=== PATIENT | female | born 1980 | race Asian ===

== ENCOUNTER 2018-10-07 03:10 | Inpatient (IN) | payer OTHER ==
[~2018-10-07] VITALS: Ht 157.5 cm; Wt 74.9 kg
[2018-10-07 03:29] VITALS: BP 133/85; PULSE 74; Ht 157.5 cm; Wt 74.9 kg
[2018-10-07] MEDS ORDERED: CITRACAL PO (03:36)
[2018-10-07] MEDS ORDERED: FER325 PO (03:36)
[2018-10-07] MEDS ORDERED: PREN-93 PO (03:36)
[2018-10-07] MEDS ORDERED: LACTATED RINGER'S 1,000 ML IV PRN (04:50)
[2018-10-07] MEDS ORDERED: LIDOCAINE 1% (MPF) 30 ML INJ INJ PRN (05:00)
[2018-10-07] MEDS ORDERED: AMPICILLIN 2 GM/NS (PMX) 100 ML IV ONE (05:00)
[2018-10-07] MEDS ORDERED: MISOPROSTOL 200 MCG TAB PR PRN ×2 (05:00→14:30)
[2018-10-07] MEDS ORDERED: OXYTOCIN 30 UNITS/LR 500 ML IV PRN ×2 (05:00→14:30)
[2018-10-07] MEDS ORDERED: BUTORPHANOL 2 MG INJ IV PRN (05:00)
[2018-10-07] MEDS ORDERED: CARBOPROST 250 MCG INJ IM PRN ×2 (05:00→14:30)
[2018-10-07] MEDS ORDERED: METHYLERGONOVINE 0.2 MG INJ IM PRN ×2 (05:00→14:30)
[2018-10-07] MEDS ORDERED: IBUPROFEN 600 MG TAB PO PRN (05:00)
[2018-10-07] MEDS ORDERED: OXYTOCIN 30 UNITS/LR 500 ML IV SCH ×2 (05:00)
[2018-10-07] MEDS ORDERED: BUTORPHANOL 1 MG INJ IV PRN (05:00)
[2018-10-07] MEDS: LACTATED RINGER'S 1,000 ML IV SCH ×3 (05:25→10:37)
[2018-10-07] MEDS ORDERED: CEFAZOLIN 2 GM/50 ML (PMX) 50 ML IVPB SCH (05:30)
--- NOTE | 2018-10-07 05:54 | HP ---
Date/Time of Note Date/Time of Note DATE: 10/07/18 TIME: 05:48 OB - History Hx of Present Free Text/Dictation 10/07/2018 : 1 Para: 0 Spontaneous : 0 Care: Good Care Other Concerns: 38 years old with IUP at 38 weeks and 5 days, presented with complaint of contractions and LOF since 12 : 00 mid night with passing some blood clots., She was noited to have a heart decelerations down to 80s, lasted for 1 min and occasional late decelerations consistent with Cat 2 tracing that resolved after Hydration. She has progressed to 3-4 cm spontaneously and After hydration. Cat 1 with occasional variable deceleration course was complicated by elevated one hour PG. 3 hours GTT normal. Late transfer from [facility]. Had care in [facility], Past Family/Social History * Past Medical, Surgical, Family and Obstetric Histories reviewed from chart. OB Admission Exam Vital Signs Vital Signs Vital Signs Date Temp Pulse Resp B/P (MAP) Pulse Ox O2 O2 Flow FiO2 Time Delivery Rate 10/07/18 98.0 74 133/85 Room Air 03:29 (101) Physical Exam HEENT: WNL Abdomen: WNL Cervical Dilatation: 3cm Effacement: 75% Station: -2 Membranes: Ruptured Heart Rate: 130's Accelerations: Accelerations Present Decelerations: Variable Decelerations Varibility: Moderate Contractions on Admission: < 5 Minutes Apart Intensity: Moderate OB Assessment/Plan Other Assessment: s/p SROM, In labor now IUP at 38 weeks and 5 days Cat 2 tracing resolved after IV hydration.now Cat1 IUPC placed. will proceed with expectant management Elevated one hour PG, 3 hour GTT normal. Consider Amnioinfusion if recurrent variables occurs Anticipate Plan of care discussed with the patient GBS positive, receiving Ampicillin for GBS prophylaxis DUNCAN NELSON MD Oct 07, 2018 05:54
--- NOTE | 2018-10-07 06:26 | PREAC ---
Date/Time of Note Date/Time of Note DATE: 10/07/18 TIME: 06:25 Anesthesia Eval and Record Evaluation Time Pre-Procedure Interview DATE: 10/07/18 TIME: 06:25 Age 38 Sex female NPO: 8 hrs Preoperative diagnosis labor pain Planned procedure epidural Past Medical History Past Medical History: Includes Surgery & Anesthesia Issues No known issue Meds Anticoagulation: No Beta Breana within 24 hr: No Reason Beta Breana not given: Pt. not on B-Breana Reported Medications Calcium Citrate* (Citracal*) 950 Mg Tab, 950 MG PO DAILY, TAB 10/07/18 Ferrous Sulfate* (Ferrous Sulfate*) 325 Mg Tabec, 325 MG PO DAILY, TAB 10/07/18 Vit No.124/Iron/FA ( Vitamin Tablet) 1 Each Tablet, 1 EACH PO, TAB 10/07/18 Current Medications Lactated Ringer's 1,000 ml @ 125 mls/hr Q8H IV Last administered on 10/07/18at 06:08; Admin Dose 125 MLS/HR; Start 10/07/18 at 04:50 Ampicillin 50 ml @ 100 mls/hr Q4H IV ; Start 10/07/18 at 09:00 Lidocaine (Xylocaine 1% (Mpf)) 30 ml ONCE PRN INJ .EPISIOTOMY; Start 10/07/18 at 05:00 Oxytocin/Lactated Ringer's 500 ml @ 500 mls/hr ONCE POST IV ; Start 10/07/18 at 05:00 Oxytocin/Lactated Ringer's 500 ml @ 125 mls/hr POST IV ; Start 10/07/18 at 05:00 Ibuprofen (Motrin) 600 mg ONCE PRN PO .PAIN 1-5; Start 10/07/18 at 05:00 Lactated Ringer's 1,000 ml @ 2,000 mls/hr Q30M PRN IV .ANESTHESIA; Start 10/07/18 at 04:50 Oxytocin/Lactated Ringer's 500 ml @ 0 mls/hr ONCE PRN IV .VAGINAL BLEEDING; Start 10/07/18 at 05:00 Methylergonovine Maleate (Methergine) 0.2 mg ONCE PRN IM .VAGINAL BLEEDING; Start 10/07/18 at 05:00 Carboprost Tromethamine (Hemabate) 250 mcg ONCE PRN IM .VAGINAL BLEEDING; Start 10/07/18 at 05:00 Misoprostol (Cytotec) 1,000 mcg ONCE PRN NH .VAGINAL BLEEDING; Start 10/07/18 at 05:00 Cefazolin Sodium/ Dextrose 50 ml @ 100 mls/hr ONCE IVPB ; Start 10/07/18 at 05:30 Meds reviewed: Yes Allergies Coded Allergies: tramadol (Verified Allergy, Unknown, ITCHING, 10/07/18) Allergies Reviewed: Yes Labs/Studies Labs Reviewed: Reviewed by anesthesiologist Result Diagram: 10/07/18 0520 Laboratory Tests 10/07/18 05:20 test: Positive Studies: ECG (n/a), CXR (n/a) Pre-procedure Exam Last vitals Vital Signs Date Temp Pulse Resp B/P (MAP) Pulse Ox O2 O2 Flow FiO2 Time Delivery Rate 10/07/18 98.0 74 133/85 Room Air 03:29 (101) Airway: Adequate mouth opening Mallampati: Mallampati I Teeth: Normal Lung: Normal Heart: Normal ASA Physical Status ASA physical status: 2 Emergency: None Planned Anesthetic Neuraxial: Epidural Pre-operative Attestations Prior to commencing anesthesia and surgery, the patient was re-evaluated, there was verification of: *The patient's identity *The results of appropriate recent lab work and preoperative vital signs *The above evaluation not changing prior to induction *Anesthetic plan, risk benefits, alternative and complications discussed with patient/family; questions answered; patient/family understands, accepts and wishes to proceed. MADISON MASSEY MD Oct 07, 2018 06:26
[2018-10-07] MEDS ORDERED: FENTAnyl 2MCG/ML-ROPIV 0.2% 100 ML ONE (06:49)
--- NOTE | 2018-10-07 06:58 | TRIAGE ---
OB Triage Datetime Report Generated by CPN: 10/07/2018 06:58 Datetime: 10/07/2018 05:59 Vaginal Exam Dilatation (cms): 2.5 Effacement (%): 60 Station: -2 Exam By: GISSELLE Vaginal Bleeding: Small Cervix, Consistency: Soft Cervix, Position: Anterior Datetime: 10/07/2018 05:44 Assessment Type: Admission Assessment Vaginal Bleeding: None Maternal Assessment Level of Consciousness: Fully Conscious DTR's/Clonus: DTRs 2+; No Clonus Headache: Denies Blurred Vision: No Respiratory Effort: Unlabored; Regular Rhythm; Equal Expansion Breath Sounds, Left: Clear and Equal Breath Sounds, Right: Clear and Equal Nausea/Vomiting: Denies RUQ Epigastric Pain: Denies Lower Extremities Edema: None Degree: None Upper Extremities Edema: None Degree: None Facial Edema: None Fall Risk Assessment History of Falling: (0) No Secondary Diagnosis: (0) No Ambulatory Aid: (0) Bedrest/Nurse Assist IV Therapy: (20) Yes Gait: (0) Normal/Bedrest/Immobile Mental Status: (0) Oriented to Own Ability Fall Score: 20 Fall Risk Score Definition: No Risk: No action required Labor Evaluation Frequency: 2.5-4 Duration (sec)2399: 60-90 Quality: Mild Pattern: Normal: <= 5 Contractions in 10 Minutes Resting Tone Quail: Relaxed Heart Rate FHR Baseline Rate: 135 Variability: Moderate 6-25 bpm Accelerations: 15X15 Decelerations: None Category: Category I Pain Assessment Pain Scale: 8 Pain Presence: Intermittent Pain Type: Contraction Pain Location: Abdomen Pain Goal: 5 Datetime: 10/07/2018 05:20 Time of Arrival: 10/07/2018 04:46 EGA: 38.5 Arrived By: Transfer Arrived From: triage Datetime: 10/07/2018 05:03 Assessment Type: Admission Assessment Maternal Assessment Level of Consciousness: Fully Conscious DTR's/Clonus: DTRs 2+; No Clonus Headache: Denies Blurred Vision: No Respiratory Effort: Unlabored; Regular Rhythm; Equal Expansion Breath Sounds, Left: Clear and Equal Breath Sounds, Right: Clear and Equal Nausea/Vomiting: Denies RUQ Epigastric Pain: Denies Lower Extremities Edema: Bilateral Lower Extremities Degree: 1+ Upper Extremities Edema: None Degree: None Facial Edema: None Temperature Route: Oral Fall Risk Assessment History of Falling: (0) No Secondary Diagnosis: (0) No Ambulatory Aid: (0) Bedrest/Nurse Assist IV Therapy: (0) No Gait: (0) Normal/Bedrest/Immobile Mental Status: (0) Oriented to Own Ability Fall Score: 0 Fall Risk Score Definition: No Risk: No action required Pain Assessment Pain Scale: 7 Pain Presence: Intermittent Pain Type: Contraction Pain Location: Abdomen; Back Pain Relief Measures: Comfort Measures Datetime: 10/07/2018 04:50 Labor Evaluation Frequency: 1.5-4.5 Monitor Mode: External Duration (sec)2399: 60-100 Quality: Moderate Pattern: Normal: <= 5 Contractions in 10 Minutes Resting Tone Quail: Relaxed Interventions: Side to Side; Oxygen Applied; Sterile Vaginal Exam; Provider Notified Heart Rate FHR Baseline Rate: 135 Monitor Mode: External US Variability: Moderate 6-25 bpm Accelerations: 15X15 Decelerations: Early; Late; Prolonged Category: Category II Comments: late decels noted, prolonged decel x1 lasting about 2.5mins down to nieves of 70bpm noted; MD notified. Pain Assessment Pain Scale: 7 Pain Presence: Intermittent Pain Type: Contraction Pain Location: Abdomen; Back Pain Relief Measures: Comfort Measures Datetime: 10/07/2018 04:46 Stage of : Labor Datetime: 10/07/2018 04:41 Vaginal Exam Dilatation (cms): 1.5 Effacement (%): 30 Station: -2 Exam By: MadhuSIMON RN Datetime: 10/07/2018 04:33 Monitor Mode: External US Comments: monitor loss of contact, occasionally tracing maternal HR (confirmed via pulse ox) Datetime: 10/07/2018 04:05 Labor Evaluation Frequency: 2-3 Monitor Mode: External Quality: Moderate Pattern: Normal: <= 5 Contractions in 10 Minutes Resting Tone Quail: Relaxed Interventions: Side to Side Heart Rate FHR Baseline Rate: 130 Monitor Mode: External US Variability: Moderate 6-25 bpm Decelerations: Late Category: Category II Datetime: 10/07/2018 03:55 Monitor Mode: External Datetime: 10/07/2018 03:50 Labor Evaluation Frequency: 1.5-4 Monitor Mode: External Duration (sec)2399: 60-90 Quality: Moderate Pattern: Normal: <= 5 Contractions in 10 Minutes Resting Tone Quail: Relaxed Interventions: Side to Side; Blood Pressure; Provider Notified Heart Rate FHR Baseline Rate: 135 Monitor Mode: External US Variability: Moderate 6-25 bpm Accelerations: 15X15 Decelerations: Late; Variable Category: Category II Datetime: 10/07/2018 03:42 Vaginal Exam Dilatation (cms): 1.5 Effacement (%): 30 Station: -2 Exam By: SLY GE Membrane Status: Intact Vaginal Bleeding: Normal Show Cervix, Consistency: Moderate Cervix, Position: Midposition Presentation 'A': Cephalic Datetime: 10/07/2018 03:36 Time of Arrival: 10/07/2018 03:11 EGA: 38.5 Arrived By: Wheelchair Arrived From: Home Chief Complaint: UC'S SINCE 1999 (10/06) WITH LOSS OF MUCUS PLUG Movement: Present Contractions: Regular Time Contractions Began: 10/06/2018 20:00 Contractions: 2-5MINS Rupture of Membranes: Unsure Vaginal Bleeding: Normal Show Vaginal Discharge: Present Recent Sexual Intercouse: Denies Abdominal Trauma: Not Applicable Patient Complaints: Contractions Time Provider Notified: 10/07/2018 03:46 Provider Notified: Initial Plan: VS, EFM, SVE Datetime: 10/07/2018 03:29 Maternal Assessment Level of Consciousness: Fully Conscious DTR's/Clonus: DTRs 2+; No Clonus Headache: Denies Blurred Vision: No Respiratory Effort: Unlabored; Regular Rhythm; Equal Expansion Breath Sounds, Left: Clear and Equal Breath Sounds, Right: Clear and Equal Nausea/Vomiting: Denies RUQ Epigastric Pain: Denies Lower Extremities Edema: Bilateral Lower Extremities Degree: 1+ Upper Extremities Edema: None Degree: None Facial Edema: None Temperature Route: Oral Fall Risk Assessment History of Falling: (0) No Secondary Diagnosis: (0) No Ambulatory Aid: (0) Bedrest/Nurse Assist IV Therapy: (0) No Gait: (0) Normal/Bedrest/Immobile Mental Status: (0) Oriented to Own Ability Fall Score: 0 Fall Risk Score Definition: No Risk: No action required Pain Assessment Pain Scale: 6 Pain Presence: Intermittent Pain Type: Contraction Pain Location: Abdomen; Back Pain Relief Measures: Comfort Measures Datetime: 10/07/2018 03:28 Monitor Mode: External Monitor Mode: External US Comments: MONITORS APPLIED, FHT AUDIBLE AROUND 135-140BPM Datetime: 10/07/2018 03:26 Stage of : OB Triage
[2018-10-07] MEDS: SOD CHLORIDE 0.9% 1,000 ML IV PRN ×2 (08:47→10:37)
[2018-10-07] MEDS ORDERED: AMPICILLIN 1 GM/NS (PMX) 50 ML IV SCH (09:00)
--- NOTE | 2018-10-07 09:27 | PAC ---
Date/Time of Note Date/Time of Note DATE: 10/07/18 TIME: 09:27 Post-Anesthesia Notes Post-Anesthesia Note Last documented vital signs Vital Signs Date Temp Pulse Resp B/P (MAP) Pulse Ox O2 O2 Flow FiO2 Time Delivery Rate 10/07/18 98.0 74 133/85 99 Room Air 08:29 (101) Activity: WNL Respiratory function: WNL Cardiovascular function: WNL Mental status: Baseline Pain reasonably controlled: Yes Hydration appropriate: Yes Nausea/Vomiting absent: No MADISON MASSEY MD Oct 07, 2018 09:27
[2018-10-07] MEDS ORDERED: NALOXONE (0.4 MG/ML) INJ IV PRN (09:30)
[2018-10-07] MEDS ORDERED: ROPIVACAINE 0.2% 100ML BAG EPI SCH (09:30)
[2018-10-07] MEDS ORDERED: FENTAnyl 2MCG/ML-ROPIV 0.2% 100 ML BAG EPI SCH (09:30)
[2018-10-07] MEDS: OXYTOCIN 30 UNITS/LR 500 ML IV SCH ×3 (14:10→18:31)
[2018-10-07] MEDS ORDERED: ONDANSETRON 4 MG INJ IV PRN (14:30)
[2018-10-07] MEDS ORDERED: METHYLERGONOVINE 0.2 MG TAB PO PRN (14:30)
[2018-10-07] MEDS ORDERED: ACETAMINOPHEN 325 MG TAB PO PRN (14:30)
[2018-10-07] MEDS ORDERED: ZOLPIDEM 5 MG TAB PO PRN (14:30)
[2018-10-07] MEDS ORDERED: LANOLIN HPA 1 PKT TOP PRN (14:30)
[2018-10-07] MEDS ORDERED: NACL 0.9% 3 ML SYG IV SCH (14:30)
[2018-10-07] MEDS ORDERED: WITCH HAZEL/GLYCERIN PAD PR PRN (14:30)
[2018-10-07] MEDS ORDERED: DIPHENHYDRAMINE 25 MG CAP PO PRN (14:30)
[2018-10-07 16:30] VITALS: BP 134/79; PULSE 95; RESP 18
[2018-10-07 17:00] VITALS: BP 126/82; PULSE 100
[2018-10-07 18:00] VITALS: BP 121/82; PULSE 98; RESP 20
[2018-10-07] MEDS: IBUPROFEN 600 MG TAB PO SCH ×2 (18:25→23:51)
[2018-10-07 20:00] VITALS: BP 116/65; PULSE 99; RESP 18
[2018-10-07] MEDS: SENNA/DOCUSATE NA (8.6MG/50MG) TAB PO SCH (21:37)
[2018-10-08] MEDS: IBUPROFEN 600 MG TAB PO SCH ×4 (05:55→23:29)
[2018-10-08 08:00] VITALS: BP 103/76; PULSE 76; RESP 18
[2018-10-08 08:45] VITALS: BP 103/76; PULSE 76; RESP 18
[2018-10-08] MEDS: SENNA/DOCUSATE NA (8.6MG/50MG) TAB PO SCH ×2 (09:29→21:16)
[2018-10-08] MEDS: FERROUS SULFATE (EC) 325 MG TAB PO SCH (09:29)
[2018-10-08 15:40] VITALS: BP 122/63; PULSE 77; RESP 18
[2018-10-08 19:30] VITALS: BP 112/70; PULSE 76; RESP 18
[2018-10-09 03:45] VITALS: BP 108/61; PULSE 64; RESP 18
[2018-10-09] MEDS: IBUPROFEN 600 MG TAB PO SCH ×2 (05:26→11:27)
[2018-10-09 08:00] VITALS: BP 115/75; PULSE 65; RESP 18
[2018-10-09] MEDS: FERROUS SULFATE (EC) 325 MG TAB PO SCH (09:25)
[2018-10-09] MEDS: SENNA/DOCUSATE NA (8.6MG/50MG) TAB PO SCH (09:25)
--- NOTE | 2018-10-09 13:53 | PN ---
Date/Time of Note Date/Time of Note DATE: 10/09/18 TIME: 13:51 OB Subjective Subjective Subjective Late entry note. Patient seen on 10/08/2018 PPD# 1 Patient is doing well. She denies nausea, vomiting, shortness of breath, chest pain, headache. She has been ambulating without difficulty, tolerating regular diet. Pain is well controlled on current medications OB Objective Objective Objective Vital Signs Date Temp Pulse Resp B/P (MAP) Pulse Ox O2 O2 Flow FiO2 Time Delivery Rate 10/09/18 98.1 65 18 115/75 Room Air 08:00 (88) General: AAO X 3, comfortable, NAD, appropriate mood and affect. ABD: +BS. Soft, non-tender. Uterus 2 cm below umbilicus Flank: No CVA tenderness (B/L) LE: Mild edema. No clubbing, cyanosis, thigh or calf tenderness (B/L). Homans 'sign is negative OB Assessment/Plan Other plan: 38-year-old s/p normal vaginal delivery at 38 weeks and 5 days. PPD#1 - AF, VSS - Baby is doing well, at bed side. She is bonding well - Contraception methods with R/B/A/FR discussed - Continue care - Discharge home tomorrow - Rx and instruction given - Follow up in 2 and 6 weeks at clinic HARRISON CHOI Oct 09, 2018 13:53
--- NOTE | 2018-10-09 13:54 | DS ---
Date/Time of Note Date/Time of Note DATE: 10/09/18 TIME: 13:53 Obstetrical Discharge Record Final Diagnosis Final Diagnosis: Term delivered Other Final Diagnosis 38-year-old s/p normal vaginal delivery at 38 weeks and 5 days. PPD#2. Her course was unremarkable. She is ambulating and tolerating regular diet. She is voiding without difficulty. Pain is controlled on current medication - AF, VSS - Baby is doing well, at bed side. She is bonding well - Contraception methods with R/B/A/FR discussed - Continue care - Discharge home - Rx and instruction given - Follow up in 2 and 6 weeks at clinic Vaginal Delivery Obstetrical Delivery: Spontaneous Condition on Discharge Physical Assessment Voiding: Yes Bowel Movement: Yes Breast: Soft, non-tender Fundus: Firm Calf Tenderness: No Patient Condition: Stable HARRISON CHOI Oct 09, 2018 13:54
--- NOTE | 2018-10-21 11:27 | DELSUM ---
Delivery Summary A-C Datetime Report Generated by CPN: 10/21/2018 11:20 DELIVERY PERSONNEL Quality Review Trainer: Nadine Uriarte MATERNAL INFORMATION Delivery Anesthesia: Epidural Medications in Delivery: Oxytocin 30 units Delivery QBL (ml): 257 Placenta Cultured: No Maternal Complications: Other Other Maternal Complications: AMA; GDM LABOR SUMMARY EDC: 10/16/2018 00:00 No. Babies in Womb: 1 Attempted: No Labor Anesthesia: Epidural LABOR INFORMATION Reason for Induction: Not Applicable Onset of Labor: 10/07/2018 03:42 Complete Dilatation: 10/07/2018 13:33 Oxytocin: N/A Group B Beta Strep: Positive Antibiotics # of Doses: 2 Antibiotics Time of Last Dose: 10/07/2018 10:00 Steroids Given: None Reason Steroids Not Administered: Not Applicable MEMBRANES Membranes Rupture Method: Spontaneous Rupture of Membranes: 10/06/2018 12:30 Length of Rupture (hr): 25.17 Amniotic Fluid Color: Clear Amniotic Fluid Amount: Moderate Amniotic Fluid Odor: None STAGES OF LABOR Stage 1 hr: 9 Stage 1 min: 51 Stage 2 hr: 0 Stage 2 min: 7 Stage 3 hr: 0 Stage 3 min: 3 Total Time in Labor hr: 10 Total Time in Labor min: 1 VAGINAL DELIVERY Episiotomy: Right Mediolateral Laceration Extension: N/A Laceration Type: None Laceration Repair: Yes Initial Vag Sponge Count: 10 Final Vag Sponge Count: 20 Initial Vag Sharps Count: 1 Final Vag Sharps Count: 3 Sponge Count Correct: Yes; Vaginal Sweep Performed Sharps Count Correct: Yes BABY A INFORMATION Infant Delivery Date/Time: 10/07/2018 13:40 Method of Delivery: Vaginal Born in Route : No : N/A Forceps: N/A Vacuum Extraction: Successful Shoulder Dystocia : No ASSISTED DELIVERY BABY A Indication for Assisted Delivery: Bradycardia Catheter Prior to Procedure: Yes Station Vacuum/Forcep Apply: 0 Position Vacuum/Forcep Apply: Left Occipital Posterior Vacuum Number of Pulls: 3 Vacuum Number of PopOffs: 3 Reduce Pressure btwn Ctx: Yes Vacuum Wood Setter: KIWI Total Time Vacuum Applied: 3 Vacuum/Forceps Comment: Maximum pressure obtained by MD. 's scalp appears within normal limits with no abrasions or cuts visualized. Baby assessed by nursery nurse. SHOULDER DYSTOCIA BABY A Delivery Date/Time: 10/07/2018 13:40 PRESENTATION/POSITION BABY A Presentation: Cephalic Cephalic Presentation: Vertex Vertex Position: Left Occipital Posterior Breech Presentation: N/A PLACENTA INFORMATION BABY A Placenta Delivery Time : 10/07/2018 13:43 Placenta Method of Delivery: Spontaneous Placenta Status: Delivered SCORES BABY A Heart Rate 1 min: >100 bpm Resp Effort 1 min: Good Cry Reflex Irritability 1 min: Cough/Sneeze/Pulls Away Muscle Tone 1 min: Active Motion Color 1 min: Blue/Pale Resuscitation Effort 1 min: Tactile Stimulation SCORE 1 MIN: 8 Heart Rate 5 min: >100 bpm Resp Effort 5 min: Good Cry Reflex Irritability 5 min: Cough/Sneeze/Pulls Away Muscle Tone 5 min: Active Motion Color 5 min: Body [place], Extremit Blue Resuscitation Effort 5 min: Tactile Stimulation SCORE 5 MIN: 9 INFORMATION BABY A Gestational Age at Delivery: 38.5 Gestational Status: Early Term- 37- 38.6 Weeks Outcome : Liveborn Infant Condition : Stable Infant Sex: Male IDENTIFICATION/MEDS BABY A ID Band Number: [id number] ID Band Location: Right Leg; Left Arm Sensor Applied: Yes Sensor Number: [id number] Sensor Location : Cord Clamp Vitamin K Given : Not Given Erythromycin Given: Not Given WEIGHT/LENGTH BABY A Infant Birthweight (gm): 3185 Infant Weight (lb): 7 Infant Weight (oz): 0 Infant Length (in): 19.00 Infant Length (cm): 48.26 CORD INFORMATION BABY A No. Cord Vessels: 3 Nuchal Cord : N/A Cord Blood Taken: Yes Infant Suction: Mouth; Nose
--- NOTE | 2018-10-24 01:47 | LDN ---
Date/Time of Note Date/Time of Note DATE: 10/24/18 TIME: 01:46 Delivery Summary Weeks of Gestation 38.5 weeks Placenta Delivered: Spontaneously Meconium: none Episiotomy: No Indication for episiotomy N/A Perineal laceration: 2 Laceration repair: second degree perineal laceration repaired using chromic Anesthesia type: Epidural Estimated blood loss: 300 Sponge & Needle done & correct: Yes All needle counts correct: Yes Any foreign bodies felt in the: No Delivery Information Sex Sex: male Apgars 1 Minute: 8 5 Minute: 9 Suctioning Nose & mouth suctioned at yariel: Yes Delee suction performed: Yes Umbilical Cord Umbilical cord with: 3 Vessels Cord presentations: no nuchal cord Cord Blood was obtained: Yes DUNCAN NELSON MD Oct 24, 2018 01:46
== END 2018-10-09 15:10 | disposition home or self-care (01) | DRG 807 ==
LOC: OBT 03:10 → L-D 03:10 → OBT 04:46 → PP1 16:23
PROVIDERS: ADMIT Obstetrics & Gynecology Obstetrics; ATTEND Obstetrics & Gynecology Obstetrics
PROC: 10E0XZZ Delivery of Products of Conception, External Approach (ICD-10-PCS; principal; 2018-10-07)
PROC: 0KQM0ZZ Repair Perineum Muscle, Open Approach (ICD-10-PCS; 2018-10-07)
PROC: 10H07YZ Insertion of Other Device into Products of Conception, Via Natural or Artificial Opening (ICD-10-PCS; 2018-10-07)
PROC: 4A1H7CZ Monitoring of Products of Conception, Cardiac Rate, Via Natural or Artificial Opening (ICD-10-PCS; 2018-10-07)
DX: O76 Abnormality in fetal heart rate and rhythm complicating labor and delivery (principal); Z37.0 Single live birth; O99.824 Streptococcus B carrier state complicating childbirth; O70.1 Second degree perineal laceration during delivery; Z3A.38 38 weeks gestation of pregnancy
CPT/HCPCS: 36415; 36600; 62319; 82803; 82947; 82962; 85014; 85018; 85025; 85610; 85730; 86592; 86850; 86900; 86901; 87340; 88307; 99464; G0463; J0290; J0690; J2590; J3010; J7120